=== PATIENT | female | born 1965 | race Caucasian/White ===

== ENCOUNTER → 2019-03-12 | Outpatient (CLI) | payer OTHER ==
[~2019-03-12] MED LIST: REGADENOSON 0.4 MG/5 ML DISP.SYRIN. IV ONE
--- NOTE | 2019-03-12 11:12 | PCVCIMAG ---
APPROVED REPORT Imaging Protocol: Rest Tc-99m/Stress Tc-99m 1 day Study performed: 03/12/2019 08:59:46 Indication: Chest discomfort Patient Location: Out-Patient Stress Nurse: Rebeca Ernst RN, Zara Guy RN ID Tech:Fabiola Mcneil [facility] Ht: 6 ft 0 in Wt: 266 lbs BSA: 2.41 m2 HR: 50 bpm BP: 133/80 mmHg BMI: 36.07 Rhythm: Bradycardia Medical History Medical History: Hyperlipidemia, Current Smoker, Clotting disorder Medications: Atorvastatin, Prozac, Warfarin, Imdur Allergies: No known drug allergies Cardiac Risk Factors: Age Pretest Chest Pain Characteristics: No chest pain Exercise History: Physically active Physical Disabilities: Foot injury Meds Held (24 hrs): Imdur Resting Data Rest SPECT myocardial perfusion imaging was performed in supine position 45 minutes following the intravenous injection of 9.9 mCi of Tc-99m Sestamibi. Time of rest injection: 829 Date: 03/12/2019 Administration Route: IV Administration Site: Right AC Pharmacologic Stress Pharmacologic stress test was performed by injecting Regadenoson 0.4 mg IV push over 10-15 seconds immediately followed by the intravenous injection of 38 mCi of Tc-99m Sestamibi. Time of stress injection: 929 Administration Route: IV Administration Site: Right AC Gated Stress SPECT was performed 45 minutes after stress injection. The images were gated to evaluate regional wall motion and calculate left ventricular ejection fraction. Stress Test Details Stress Test: Pharmacologic stress testing performed using 0.4 mg of regadenoson per 5 mL given IV over 10 seconds. Reason for pharmacologic stress test: physical limitation, foot issues. HRMax Heart Rate (APMHR): 165 bpm Resting HR: 50 bpmTarget HR (85% APMHR): 140 bpm Max HR Achieved: 83 bpm % of APMHR: 50 Recovery HR: 67 bpm BP Resting BP: 133/80 mmHg Max BP: 140/70 mmHg Recovery BP: 120/81 mmHg ECG Resting ECG: Sinus Bradycardia Stress ECG: Sinus Rhythm Arrhythmia: None Recovery ECG: Sinus Rhythm Clinical Reason for Termination: Completed protocol Stress Symptoms: Chest tightness, Headache Symptoms resolved with caffeine. Stress ECG Conclusion 1. Adequate response to intravenous Lexiscan 2. Inadequate heart rate for ECG diagnosis Study Data Post stress, the left ventricular ejection was 70%.. SSS: 0 SRS: 6 SDS: 0 TID = 1.03. Perfusion There is a small area of moderately reduced uptake in the apical segment of the anterior wall which is seen on the stress images as well as the resting images. This area thickens and moves normally and is most consistent with attenuation artifact. Wall Motion Normal left ventricular wall motion. Nuclear Conclusion ECG Findings: non-diagnostic Clinical Findings: negative for ischemia Nuclear Findings: negative for ischemia Exercise Capacity: not assessed Left Ventricular Function: normal 1. Low risk study 2. Post exercise left ventricular ejection fraction of 70% without wall motion abnormalities <Conclusion> 1. Adequate response to intravenous Lexiscan 2. Inadequate heart rate for ECG diagnosis
--- NOTE | 2019-03-12 11:14 | PCVCIMAG ---
APPROVED REPORT Study performed: 03/12/2019 07:54:51 EXAM: Comprehensive 2D, Doppler, and color-flow Echocardiogram Patient Location: Echo lab Status: routine BSA: 2.41 HR: 57 bpmBP: 120/80 mmHg Rhythm: NSR Other Information Study Quality: Good Risk Factors: Cardiac Risk Factors: Hyperlipidemia, SOB, Smoking Indications Chest Pain 2D Dimensions IVSd: 11.68 (7-11mm)LVOT Diam: 19.77 (18-24mm) LVDd: 43.53 mm PWd: 8.59 (7-11mm)Ascending Ao: 31.66 (22-36mm) LVDs: 36.57 (25-40mm) Left Atrium: 39.96 (27-40mm) Aortic Root: 21.74 mm LV Single Plane 4CH: 67.47 % LV Single Plane 2CH: 68.34 % Volumes Left Atrial Volume (Systole) Single Plane 4CH: 48.40 mLSingle Plane 2CH: 53.11 mL LA ESV Index: 22.00 mL/m2 Aortic Valve AoV Peak Gomez.: 1.83 m/s AO Peak Gr.: 13.45 mmHgLVOT Max P.66 mmHg LVOT Max V: 1.08 m/s BRUNO Vmax: 1.81 cm2 Mitral Valve E/A Ratio: 1.2 MV Decel. Time: 245.56 ms MV E Max Gomez.: 0.76 m/s MV A Gomez.: 0.64 m/s TDI E/Lateral E': 6.91E/Medial E': 9.50 Medial E' Gomez.: 0.08 m/s Lateral E' Gomez.: 0.11 m/s Pulmonary Valve PV Peak Gr.: 2.21 mmHg Pulmonary Vein P Vein S: 0.67 m/sP Vein A: 0.31 m/s P Vein D: 0.52 m/sP Vein A Dur.: 100.3 msec P Vein S/D Ratio: 1.29 Tricuspid Valve TR Peak Gomez.: 2.28 m/s TR Peak Gr.: 20.85 mmHg Left Ventricle The left ventricle is normal size. There is normal LV segmental wall motion. There is normal left ventricular wall thickness. Left ventricular systolic function is normal. The left ventricular ejection fraction is within the normal range. LVEF is 55-60%. The left ventricular diastolic function is normal. Right Ventricle The right ventricle is normal size. The right ventricular systolic function is normal. Atria The left atrium size is normal. The right atrium size is normal. Aortic Valve The aortic valve is normal in structure. Trace aortic regurgitation. There is no aortic valvular stenosis. Mitral Valve The mitral valve is normal in structure. Trace mitral regurgitation. No evidence of mitral valve stenosis. Tricuspid Valve The tricuspid valve is normal in structure. Trace tricuspid regurgitation. Pulmonary artery pressure is 28mmHg. Pulmonic Valve The pulmonary valve is normal in structure. There is no pulmonic valvular regurgitation. Great Vessels The aortic root is normal in size. IVC is normal in size and collapses >50% with inspiration. Pericardium There is no pericardial effusion. <Conclusion> The left ventricle is normal size. LVEF is 55-60%. The aortic valve is normal in structure. Trace aortic regurgitation. The mitral valve is normal in structure. Trace mitral regurgitation. The tricuspid valve is normal in structure. Trace tricuspid regurgitation. Pulmonary artery pressure is 28mmHg. The pulmonary valve is normal in structure. There is no pericardial effusion.
== END | disposition home or self-care (01) ==
LOC: PCVCIMAG 07:53
PROVIDERS: ATTEND Internal Medicine
DX: R07.89 Other chest pain (principal); E78.5 Hyperlipidemia, unspecified; E78.00 Pure hypercholesterolemia, unspecified; E66.9 Obesity, unspecified; F17.200 Nicotine dependence, unspecified, uncomplicated; Z79.899 Other long term (current) drug therapy
CPT/HCPCS: 78452; 93017; 93306; A9500; J2785